=== PATIENT | female | born 1990 | race Caucasian/White ===

== ENCOUNTER 2016-05-09 19:15 | Inpatient (IN) | payer BC ==
[~2016-05-09] VITALS: Ht 160 cm; Wt 97.5 kg
[2016-05-14] MEDS ORDERED: IRON325 M1 PO (17:52)
[2016-05-14] MEDS ORDERED: PRENATAL VIT1 TAB PO (17:52)
[2016-05-14] MEDS ORDERED: SYNTHROID DPS0.05 MG PO (17:52)
[2016-05-14] MEDS ORDERED: TRANDATE DPS100 MG PO (17:52)
[2016-05-14] MEDS ORDERED: COLACE-DPS100 MG PO (17:52)
[2016-05-14] MEDS ORDERED: PERCOCET 5 DPS1 TAB PO (17:53)
[2016-05-14] MEDS ORDERED: MOTRIN-DPS800 MG PO (17:53)
[2016-05-14] MEDS ORDERED: NIPPLECREAM TP (17:53)
--- NOTE | 2016-05-28 09:33 | HP ---
ADMIT: 05/09/2016 RM/LOC: 222 [facility] MR#: [id number] [address] [id number] PAULA MENDOZA [address] [place] [address] History and Physical SEX: F AGE: 25 : 1990 DATE OF SERVICE: CHIEF COMPLAINT: Induction of labor. HISTORY OF PRESENT ILLNESS: This is a 25-year-old female, 2, para 0-0- 1-0, who [facility] the [facility] with an intrauterine at 37- 1/7th weeks' gestation with estimated date of confinement of 05/29/2016. Her estimated date of confinement is based of last menstrual period and consistent with the ultrasound. Her has been complicated by chronic hypertension, hypothyroidism, obesity, and a recent ultrasound demonstrating an abdominal circumference of less than the 5th percentile. The overall estimated weight was 12th percentile. However, given the decreased abdominal circumference, Maternal- Medicine did recommend delivery at 37 weeks. LABORATORY DATA: Blood type is O negative. Antibody screen negative. Hepatitis B surface antigen negative. RPR nonreactive. Rubella immune. Gonorrhea and chlamydia negative. HIV negative. Quad screen was normal. Diabetic screen 140. Three-hour glucose tolerance test 86, 154, 116, and 93. Group B Strep is negative. PAST MEDICAL HISTORY: Significant for: 1. Hypertension. 2. Hypothyroidism. 3. Allergies. 4. She denies asthma, kidney problems, or diabetes. PAST SURGICAL HISTORY: Nose surgery. SOCIAL HISTORY: She is . She denies tobacco, alcohol, or drug use. ALLERGIES: NO KNOWN DRUG ALLERGIES. CURRENT MEDICATIONS: 1. vitamin daily. 2. Labetalol 100 mg p.o. b.i.d. 3. Omeprazole 20 mg daily. 4. Levothyroxine 75 mcg daily. 5. Montelukast sodium 10 mg daily. PHYSICAL EXAMINATION: VITAL SIGNS: Temperature is 97.2, blood pressure 144/79, pulse 97, respirations 18. GENERAL: This is a pleasant female, in no acute distress. HEENT: Head is normocephalic, atraumatic. Pupils are equal, round, reactive to light and accommodation. Extraocular muscles are intact. NECK: Supple. HEART: Regular rate and rhythm. LUNGS: Clear bilaterally. ADMIT: 05/09/2016 RM/LOC: 222 [facility] MR#: [id number] [address] [address] PAULA MENDOZA [address] [place] [address] History and Physical SEX: F AGE: 25 : 1990 ABDOMEN: Soft, nontender, nondistended, and gravid. EXTREMITIES: Nontender. heart tones are 130s baseline, moderate variability is present, 15 x 15 accelerations are present. Decelerations are absent. Uterine contractions are rare. Her cervix is 1 cm long, -3 station. Fetus is vertex. Estimated weight 6 pounds. IMPRESSION: 1. This is a 25-year-old female, 2, para 0-0-1-0, with an intrauterine at 37-1/7th weeks' gestation. 2. Chronic hypertension. 3. Decreased abdominal circumference. 4. Hypothyroidism. 5. Obesity. 6. Group B streptococcus, negative. PLAN: At this time, we do plan to proceed with induction of labor. We will start by placing misoprostol 25 mcg vaginally and repeat this in 6 hours if needed. We will then use a catheter or Pitocin with assisted rupture of membranes as needed to achieve active labor and anticipate a spontaneous vaginal delivery. Jennifer Thompson MD/ anthony JOB #: [id number] CC: Jennifer Thompson, Attending Physician Jennifer Thompson, Family Physician
--- NOTE | 2016-05-28 09:33 | OR ---
ADMIT: 05/09/2016 RM/LOC: 222 [facility] MR#: [id number] [facility] [address] [place] [phone] PAULA MENDOZA [address] [place] [address] Operative/Delivery Room Report SEX: F AGE: 25 : 1990 Corrected: [id number] njv SURGERY DATE: 05/11/2016 SURGEON: Jennifer Thompson MD PREOPERATIVE DIAGNOSES: 1. Intrauterine at 37 and 2/7th weeks' gestation. 2. Chronic hypertension. 3. Intrauterine growth restriction. 4. Arrest of dilation. POSTOPERATIVE DIAGNOSES: 1. Intrauterine at 37 and 2/7th weeks' gestation. 2. Chronic hypertension. 3. Intrauterine growth restriction. 4. Arrest of dilation. 5. With delivery of a viable male at 0043 hours, weighing 5 pounds 4.5 ounces with of 8 at 1 minute, 9 at 5 minutes. PROCEDURE: Low transverse section. AGRICULTURE MANAGER: Katherine Monique MD, Resident. ANESTHESIA: Epidural. COMPLICATIONS: None. ESTIMATED BLOOD LOSS: 800 mL. FLUIDS: Crystalloid. INDICATIONS: This is a 25-year-old female 2, para 0-0-1-0, who [facility] with an intrauterine at 37-1/7th weeks' gestation for induction of labor. Her has been complicated by chronic hypertension and recent diagnosis of decreased abdominal circumference less than the 5th percentile. Maternal medicine recommended induction at 37 weeks'. She was given 2 doses of misoprostol 25 mcg vaginally. A Cook catheter was then placed. Assisted rupture of membranes was performed when she was 4 cm dilated. She progressed to be 5 cm dilated, but despite adequate contractions, did not progress past that point. We did review the risks, benefits, and alternatives to a section and she agreed to proceed. FINDINGS: Normal maternal uterus, tubes, and ovaries. Male infant as above. PROCEDURE IN DETAIL: The patient was properly identified. Informed consent was obtained. She was then taken to the operating room where her epidural anesthesia was dosed. She was placed in the dorsal supine position with a leftward tilt and prepped and draped in the usual sterile fashion. Beti Faustin ADMIT: 05/09/2016 RM/LOC: 222 [facility] MR#: [id number] [address] [id number] PAULA MENDOZA [address] [place], [place] [address] Operative/Delivery Room Report SEX: F AGE: 25 : 1990 catheter had been inserted previously in the bladder. After adequate epidural anesthesia was established, a Pfannenstiel skin incision was made with a scalpel. This was carried through to the underlying layer of fascia. The fascia was incised in the midline and the incision was extended laterally using the Solomon scissors. The superior aspect of the fascia was grasped with Marlin clamps, elevated, and underlying rectus muscles were dissected off. Attention was then turned to the inferior aspect of the fascia in a similar manner, it was grasped with Marlin clamps, elevated, and underlying rectus muscles were dissected off. The rectus muscles were in the midline. The peritoneum was identified and entered bluntly. The peritoneal incision was then extended with the stretch maneuver. The bladder blade was placed. The vesicouterine peritoneum was identified, grasped with pickups, and entered sharply with Metzenbaum scissors. The incision was extended laterally and a bladder flap was created digitally. The bladder blade was then replaced and the lower uterine segment was incised in a transverse fashion with the scalpel. The uterine incision was extended with the stretch maneuver. The bladder blade was removed and the infant's vertex was delivered atraumatically. Nuchal cord x2 was noted. This was tight and I was unable to relieve this around the infant's vertex at this time. The anterior and posterior shoulders as well as remainder of the infant were delivered and the nuchal cord was reduced. The cord was clamped x2 and cut. The did have spontaneous cry and movement of all 4 extremities. He was taken to the warmer where nursing personnel were in attendance. Cord blood was obtained. The placenta delivered with help from traction and uterine massage. The uterus was exteriorized and cleared of all clot and debris. The uterine incision was repaired with 0 Vicryl in a running, locked fashion. The uterus was then returned to the abdomen. The gutters were cleared of all clot and debris. The uterine incision was reinspected and noted to be hemostatic. The posterior aspect of the rectus fascia and the rectus muscles were made hemostatic with use of electrocautery. The rectus fascia was reapproximated with 0 Vicryl in a running, nonlocking fashion. The subcutaneous tissues were made hemostatic with use of electrocautery. They were reapproximated using 2-0 plain. Subcuticular jerry and Steri-Strips were applied. The patient tolerated the procedure well. Sponge, lap, needle, and instrument counts were correct. The patient was taken to recover in her Labor and Delivery suite with her . Jennifer Thompson MD/ anthony JOB #: [id number] CC: Jennifer Thompson, Attending Physician Jennifer Thompson, Family Physician Corrected: 05/12/2016 0612 nj
--- NOTE | 2016-06-22 09:02 | DS ---
ADMIT: 05/09/2016 RM/LOC: 222 [facility] MR#: [id number] [address] [address] PAULA MENDOZA [address] [place] [address] General Discharge Summary SEX: F AGE: 25 : 1990 ADMISSION DATE: 05/09/2016 DISCHARGE DATE: 05/13/2016 PRIMARY DIAGNOSES: 1. Status post low transverse section. 2. Chronic hypertension. 3. Hypothyroidism. SECONDARY DIAGNOSIS: Obesity. PROCEDURES PERFORMED: On 05/11/2016, low transverse section secondary to arrest of dilation with delivery of a viable male , weighing 5 pounds 4.5 ounces with scores of 8 at 1 minute and 9 at 5 minutes. HOSPITAL COURSE: This is a 25-year-old female, 2, para 0-0-1-0, who presented to the [facility] Center with an intrauterine at 37-1/7th weeks' gestation for induction of labor. Her was complicated by chronic hypertension with a recent diagnosis of possible intrauterine growth restriction, given measurements of less than the 5th percentile for the abdominal circumference. Her was also complicated by hypothyroidism and obesity. She was started on misoprostol. A Cook catheter was then placed, assisted rupture of membranes was performed. Pitocin augmentation was used; however, she did not dilate past 5 cm. She did undergo a low transverse section without any complications secondary to arrest of dilation. Postoperatively, she did very well. By the morning of postoperative day #1, she was able to ambulate without any difficulty. She did have slightly- decreased urine output. Therefore, this Faustin catheter was continued until this improved. Once the Faustin catheter was removed, she was able to void without any difficulty by the morning and on postoperative day #1, her hemoglobin was 9.0. Her blood pressures did stay in the normal to occasionally mildly-elevated range. She continued to do well and by postoperative day #2, she was ambulating, voiding, and tolerating the diet without any difficulty. She requested discharge on postoperative day #2, was deemed stable and therefore discharged to home. DISCHARGE INSTRUCTIONS: She was asked to call with any signs or symptoms of infection including temperature greater than 100.4 degrees, vaginal bleeding greater than 1 pad an hour, erythema or drainage of her abdominal incision or any erythema or tenderness in her lower extremities or breasts. DISCHARGE MEDICATIONS: She was dismissed on: 1. Labetalol 100 mg p.o. b.i.d. 2. Synthroid ADMIT: 05/09/2016 RM/LOC: 222 [facility] MR#: [id number] [address] [place] [id number] KELLY PAULA M [address] [place] [address] General Discharge Summary SEX: F AGE: 25 : 1990 1. vitamin 1 daily. 2. Ferrous sulfate 325 mg p.o. b.i.d. 3. Colace 100 mg p.o. b.i.d. 4. Motrin 800 mg 1 p.o. q.8 hours p.r.n. pain. 5. Percocet 5/325 mg 1-2 p.o. q.4 to 6 hours p.r.n. pain. She was advised to follow up in 1 week for a blood pressure check; at 2 weeks, for an incision check; and in 6 weeks for check. CONDITION ON DISCHARGE: Stable. DISPOSITION: The patient was dismissed to home. Jennifer Thompson MD/ anthony JOB #: [id number] CC: Jennifer Thompson MD, Attending Physician Jennifer Thompson MD, Family Physician
== END 2016-05-13 12:10 | disposition home or self-care (01) | DRG 765 ==
LOC: 2LDRP 19:15 → BC 19:15 → 2LDRP 19:42 → BC 05-29 08:00
PROVIDERS: ADMIT Obstetrics & Gynecology
PROC: 3E0234Z Introduction of Serum, Toxoid and Vaccine into Muscle, Percutaneous Approach (ICD-10-PCS; principal; 2016-05-11)
PROC: 10D00Z1 Extraction of Products of Conception, Low, Open Approach (ICD-10-PCS; principal; 2016-05-11)
PROC: 3E0P7GC Introduction of Other Therapeutic Substance into Female Reproductive, Via Natural or Artificial Opening (ICD-10-PCS; principal; 2016-05-11)
PROC: 10907ZC Drainage of Amniotic Fluid, Therapeutic from Products of Conception, Via Natural or Artificial Opening (ICD-10-PCS; principal; 2016-05-11)
DX: O36.5930 Maternal care for other known or suspected poor fetal growth, third trimester, not applicable or unspecified (principal); D62 Acute posthemorrhagic anemia; O10.92 Unspecified pre-existing hypertension complicating childbirth; O99.214 Obesity complicating childbirth; E66.9 Obesity, unspecified; O90.81 Anemia of the puerperium; O69.81X0 Labor and delivery complicated by cord around neck, without compression, not applicable or unspecified; O99.284 Endocrine, nutritional and metabolic diseases complicating childbirth; E03.9 Hypothyroidism, unspecified; Z68.36 Body mass index [BMI] 36.0-36.9, adult; O76 Abnormality in fetal heart rate and rhythm complicating labor and delivery; Z3A.37 37 weeks gestation of pregnancy; Z37.0 Single live birth